=== PATIENT | male | born 1945 | race Caucasian/White ===

== ENCOUNTER 2017-02-10 22:30 | Emergency (ER) | payer MEDICARE, OTHER ==
[~2017-02-10 22:30] MED LIST: ANTI-FUNGAL12 EX; ANUSOL HC SUPP1 SUPP PR; ASAB PO; COREG12 PO; COREG6 PO; COZAAR100 MG PO; FLEX PO; FLEXERIL5 MG PO; FLONASE NAS; GAS-X80 MG PO; GENTEAL 15 ML O15 ML OPH; GLUCPH PO; HYDROCORT2.51 EX; HYT5 PO; LIPITOR20 PO; LORTAB 5 PO; LYRICA25 PO; METROGEL TOP; MYCOSCROI TOP; NASALCROM NASAL13 ML INH; NASAREL29 MCG NAS; NEUR300 PO; NORV5 PO; PRILO PO; PROCTOSOL HC2.5 % RE; ULTRAM50 PO; ZANTAC150 MG PO
== END 2017-02-11 00:43 | disposition home or self-care (01) ==
LOC: ER 22:30
DX: L03.114 Cellulitis of left upper limb (principal); I10 Essential (primary) hypertension; K21.9 Gastro-esophageal reflux disease without esophagitis; E11.9 Type 2 diabetes mellitus without complications; Z85.07 Personal history of malignant neoplasm of pancreas; Z88.0 Allergy status to penicillin; Z88.2 Allergy status to sulfonamides; Z88.8 Allergy status to other drugs, medicaments and biological substances; Z79.899 Other long term (current) drug therapy; Z79.82 Long term (current) use of aspirin; Z79.84 Long term (current) use of oral hypoglycemic drugs
CPT/HCPCS: 99283; A9270-GY